=== PATIENT | female | born 1980 | race African-American/Black ===

== ENCOUNTER 2017-08-02 11:04 | Inpatient (IN) | payer OTHER, MEDICARE, MEDICAID ==
[~2017-08-02] VITALS: Ht 170.2 cm; Wt 68.5 kg
[~2017-08-02 11:04] MED LIST: GABA-290 PO; REBIF IV
[2017-08-02] MEDS ORDERED: P20 PO (11:32)
[2017-08-02] MEDS ORDERED: METHYLPREDNISOLONE SOD SUCC 500 MG in DEXT 5% WATER 100 ML IV ONE ×4 (12:45)
[2017-08-02 13:01] LABS: BASOPHILS % 0.6 % (0.0-2.0); HEMATOCRIT. 30.1 % (36.0-48.0); HEMOGLOBIN. 9.6 g/dL (12.0-16.0); LYMPHOCYTES % 13.7 % (20.0-50.0); MEAN CORPUSCULAR HEMOGLOBIN 24.1 pg (28.0-32.0); MEAN CORPUSCULAR VOLUME 75.6 fL (81.0-99.0); MEAN PLATELET VOLUME 8.4 fl (7.4-10.4); MONOCYTES % 3.6 % (2.0-8.0); NEUTROPHILS % 82.1 % (40.0-76.0); PLATELET 271 x1000/uL (130-400); RED BLOOD CELL COUNT 3.98 mill/uL (4.2-5.4); RED CELL DISTRIBUTION WIDTH 19.6 % (11.6-14.6)
[2017-08-02 13:08] LABS: CHLORIDE 106 mEq/L (98-107)
[2017-08-02 13:13] LABS: CARBON DIOXIDE 25 mEq/L (21-32)
[2017-08-02] MEDS: METHYLPREDNISOLONE SOD SUCC 500 MG in DEXT 5% WATER 100 ML IV NR ×2 (13:15→15:47)
[2017-08-02] MEDS: METHYLPREDNISOLONE SOD SUCC 500 MG in DEXT 5% WATER 100 ML IV ONE ×2 (13:27→13:29)
[2017-08-02] MEDS ORDERED: PROPOFOL 200MG/20ML VIAL IV ONE (13:31)
[2017-08-02] MEDS ORDERED: FENTANYL CITRATE/PF 50MCG/ML 2ML VIAL ONE (13:32)
[2017-08-02] MEDS ORDERED: LIDOCAINE HCL 1% 20ML VIAL (Pyxis) INJ ONE (13:39)
[2017-08-02] MEDS ORDERED: DIPHENHYDRAMINE 50MG/ML VIAL IV PRN (19:15)
[2017-08-02] MEDS ORDERED: CLONIDINE 0.1MG TABLET PO PRN (19:15)
[2017-08-02] MEDS ORDERED: ONDANSETRON HCL 4MG/2ML VIAL IV PRN (19:15)
[2017-08-02] MEDS ORDERED: MAGNESIUM/ALUMINUM HYDROXIDE/SIMETHICONE 30ML UDC PO PRN (19:15)
[2017-08-02 19:53] VITALS: BP 140/85
[2017-08-02 20:00] VITALS: BP 140/85
[2017-08-02] MEDS: ACETAMINOPHEN 325MG TABLET PO PRN (20:40)
[2017-08-02] MEDS: LORAZEPAM 0.5MG TABLET PO PRN (23:18)
[2017-08-03] VITALS: BP 99/68
[2017-08-03] MEDS: SODIUM CHLORIDE 0.9% INJ 3ML FLUSH IVF SCH ×4 (03:43→21:09)
[2017-08-03] MEDS: ACETAMINOPHEN 325MG TABLET PO PRN ×2 (03:43→20:10)
[2017-08-03 04:00] VITALS: BP 134/73
[2017-08-03 08:00] VITALS: BP 129/97
[2017-08-03] MEDS: LORAZEPAM 0.5MG TABLET PO PRN ×2 (10:24→22:50)
[2017-08-03 11:51] VITALS: BP 141/78
[2017-08-03 16:00] VITALS: BP 126/88
[2017-08-03 20:00] VITALS: BP 135/91
[2017-08-04] VITALS: BP 112/76
[2017-08-04 04:00] VITALS: BP 121/76
[2017-08-04] MEDS: SODIUM CHLORIDE 0.9% INJ 3ML FLUSH IVF SCH ×3 (05:09→21:45)
[2017-08-04 08:00] VITALS: BP 122/87
[2017-08-04] MEDS: FAMOTIDINE 20MG TABLET PO SCH ×2 (11:08→21:43)
[2017-08-04 12:00] VITALS: BP 131/92
[2017-08-04] MEDS: METHYLPREDNISOLONE SOD 1,000 MG in DEXT 5% WATER 100 ML IV SCH (12:01)
[2017-08-04 16:00] VITALS: BP 132/89
[2017-08-04 20:00] VITALS: BP 116/83
[2017-08-04] MEDS: LORAZEPAM 0.5MG TABLET PO PRN (21:43)
[2017-08-04] MEDS: LORAZEPAM 0.5MG TABLET PO SCH (22:45)
[2017-08-05] VITALS: BP 120/78
[2017-08-05 04:00] VITALS: BP 122/80
[2017-08-05] MEDS: SODIUM CHLORIDE 0.9% INJ 3ML FLUSH IVF SCH ×2 (06:19→21:06)
[2017-08-05 08:00] VITALS: BP 124/77
[2017-08-05] MEDS: FAMOTIDINE 20MG TABLET PO SCH ×2 (08:47→20:27)
[2017-08-05 12:00] VITALS: BP 143/93
[2017-08-05] MEDS: METHYLPREDNISOLONE SOD 1,000 MG in DEXT 5% WATER 100 ML IV SCH (12:24)
[2017-08-05] MEDS: ACETAMINOPHEN 325MG TABLET PO PRN (15:31)
[2017-08-05 16:00] VITALS: BP 134/93
[2017-08-05] MEDS: LORAZEPAM 0.5MG TABLET PO SCH (20:31)
[2017-08-05] MEDS: ASPIRIN/ACETAMINOPHEN/CAFFEINE 250/250/65MG TABLET PO PRN (20:32)
[2017-08-05] MEDS ORDERED: IOHEXOL-300 100 ML BOTTLE ONE (22:06)
[2017-08-06] MEDS: SODIUM CHLORIDE 0.9% INJ 3ML FLUSH IVF SCH ×3 (05:02→22:02)
[2017-08-06] MEDS: LORAZEPAM 0.5MG TABLET PO PRN (05:15)
[2017-08-06] MEDS: ASPIRIN/ACETAMINOPHEN/CAFFEINE 250/250/65MG TABLET PO PRN (05:15)
[2017-08-06 08:00] VITALS: BP 140/92
[2017-08-06] MEDS: FAMOTIDINE 20MG TABLET PO SCH ×2 (08:43→21:00)
[2017-08-06 12:00] VITALS: BP 119/80
[2017-08-06] MEDS: METHYLPREDNISOLONE SOD 1,000 MG in DEXT 5% WATER 100 ML IV SCH (13:25)
[2017-08-06 16:00] VITALS: BP 152/91
[2017-08-06 20:00] VITALS: BP 137/86
[2017-08-06] MEDS: LORAZEPAM 0.5MG TABLET PO SCH (22:02)
[2017-08-07] VITALS: BP 126/94
[2017-08-07 04:00] VITALS: BP 144/85
[2017-08-07] MEDS: SODIUM CHLORIDE 0.9% INJ 3ML FLUSH IVF SCH (06:09)
[2017-08-07 08:00] VITALS: BP 124/96
[2017-08-07] MEDS: FAMOTIDINE 20MG TABLET PO SCH (08:56)
[2017-08-07 09:33] VITALS: BP 124/96
== END 2017-08-07 10:05 | disposition home or self-care (01) | DRG 60 ==
LOC: ER 11:04 → 6EST 14:28 → ENRESERV 15:26 → CANBEDREQ 16:13
PROVIDERS: ADMIT Internal Medicine; ATTEND Psychiatry & Neurology Neurology
DX: G35 Multiple sclerosis (principal); B37.3 Candidiasis of vulva and vagina; D64.9 Anemia, unspecified; E11.9 Type 2 diabetes mellitus without complications; F12.90 Cannabis use, unspecified, uncomplicated; F17.200 Nicotine dependence, unspecified, uncomplicated; F32.9 Major depressive disorder, single episode, unspecified; F41.9 Anxiety disorder, unspecified; Z82.0 Family history of epilepsy and other diseases of the nervous system; Z83.3 Family history of diabetes mellitus
CPT/HCPCS: 36415; 80048; 85025; 93970; 97110; 97112; 97116; 97162; 97165; 99285; 99406; C1893; J1200; J2704; J2930; J3010; J3490; J7030; J7060; Q9967

== ENCOUNTER 2020-01-05 10:06 | Emergency (ER) | payer OTHER, MEDICARE, MEDICAID ==
[~2020-01-05] VITALS: Ht 170.2 cm; Wt 65.0 kg
[~2020-01-05 10:06] MED LIST changes: +P20 PO
[2020-01-05 12:22] LABS: BASOPHILS % 0.1 % (0.0-2.0); HEMATOCRIT. 39.5 % (36.0-48.0); HEMOGLOBIN. 13.2 g/dL (12.0-16.0); LYMPHOCYTES % 17.1 % (20.0-50.0); MEAN CORPUSCULAR HEMOGLOBIN 29.2 pg (28.0-32.0); MEAN CORPUSCULAR VOLUME 87.5 fL (81.0-99.0); MEAN PLATELET VOLUME 10.1 fl (7.4-10.4); MONOCYTES % 6.2 % (2.0-8.0); NEUTROPHILS % 76.6 % (40.0-76.0); PLATELET 186 x1000/uL (130-400); RED BLOOD CELL COUNT 4.51 mill/uL (4.2-5.4); RED CELL DISTRIBUTION WIDTH 13.9 % (11.6-14.6)
[2020-01-05 12:28] LABS: INR 1.1; PROTHROMBIN TIME 11.4 sec (9.6-11.0)
[2020-01-05 12:29] LABS: CHLORIDE 110 mEq/L (98-107)
[2020-01-05 12:48] LABS: CLARITY URINE CLEAR (CLEAR); COLOR URINE DARK YELLOW (YELLOW); KETONES URINE 2+ (NEGATIVE); LEUKOCYTE ESTERASE URINE TRACE (NEGATIVE); NITRITE URINE NEGATIVE (NEGATIVE); OCCULT BLOOD URINE 2+ (NEGATIVE); PROTEIN URINE TRACE (NEGATIVE); SPECIFIC GRAVITY URINE 1.034 (1.005-1.030)
[2020-01-05] MEDS ORDERED: LORAZEPAM 1MG TABLET PO ONE (14:30)
[2020-01-05 17:00] VITALS: BP 118/73
== END 2020-01-05 18:55 | disposition left against medical advice (07) ==
LOC: ER 10:06 → CANBEDREQ 13:46 → ER 18:55
DX: G35 Multiple sclerosis (principal); R53.1 Weakness; R47.81 Slurred speech; F12.10 Cannabis abuse, uncomplicated; Z99.3 Dependence on wheelchair; Z79.899 Other long term (current) drug therapy
CPT/HCPCS: 36415; 80053; 81003; 85025; 99285

== ENCOUNTER 2020-01-05 20:08 | Emergency (ER) | payer OTHER, MEDICARE, MEDICAID ==
[~2020-01-05] VITALS: Ht 170.2 cm; Wt 55.0 kg
[2020-01-05] MEDS ORDERED: SODIUM CHLORIDE 0.9% 1,000 ML IV ONE (21:01)
[2020-01-05] MEDS ORDERED: LORAZEPAM 1MG TABLET PO ONE (21:30)
[2020-01-05 21:33] LABS: BASOPHILS % 0.5 % (0.0-2.0); HEMATOCRIT. 40.8 % (36.0-48.0); HEMOGLOBIN. 13.7 g/dL (12.0-16.0); LYMPHOCYTES % 21.9 % (20.0-50.0); MEAN CORPUSCULAR HEMOGLOBIN 29.3 pg (28.0-32.0); MEAN CORPUSCULAR VOLUME 87.1 fL (81.0-99.0); MEAN PLATELET VOLUME 10.9 fl (7.4-10.4); MONOCYTES % 7.9 % (2.0-8.0); NEUTROPHILS % 69.7 % (40.0-76.0); PLATELET 198 x1000/uL (130-400); RED BLOOD CELL COUNT 4.69 mill/uL (4.2-5.4); RED CELL DISTRIBUTION WIDTH 14.1 % (11.6-14.6)
[2020-01-05 21:37] LABS: PROTHROMBIN TIME 11.3 sec (9.6-11.0)
[2020-01-05 21:39] LABS: CHLORIDE 111 mEq/L (98-107)
[2020-01-05 21:43] LABS: ETHANOL BLOOD < 10 mg/dL
[2020-01-05 21:46] LABS: HCG SCREEN NEGATIVE
[2020-01-05 21:47] LABS: CREATINE KINASE 675 IU/L (26-192)
[2020-01-06] MEDS ORDERED: LORAZEPAM 2MG/ML CPJ IV ONE (02:45)
[2020-01-06 03:03] VITALS: BP 121/79
[2020-01-06 03:10] LABS: *AMPHETAMINES SCREEN URINE NEGATIVE (NEGATIVE)
[2020-01-06 03:11] LABS: *BARBITURATES SCREEN URINE NEGATIVE (NEGATIVE); *BENZODIAZEPINES SCREEN URINE NEGATIVE (NEGATIVE); *COCAINE SCREEN URINE NEGATIVE (NEGATIVE); METHADONE URINE SCREEN NEGATIVE (NEGATIVE); OPIATES URINE SCREEN NEGATIVE (NEGATIVE); PHENCYCLIDINE URINE SCREEN NEGATIVE (NEGATIVE)
[2020-01-06 03:23] LABS: CANNABINOID URINE SCREEN PRESUMTIVE POSITIVE (NEGATIVE)
[2020-01-06 03:48] LABS: CLARITY URINE CLOUDY (CLEAR); COLOR URINE DARK YELLOW (YELLOW); KETONES URINE 3+ (NEGATIVE); LEUKOCYTE ESTERASE URINE 1+ (NEGATIVE); NITRITE URINE NEGATIVE (NEGATIVE); OCCULT BLOOD URINE 2+ (NEGATIVE); PROTEIN URINE TRACE (NEGATIVE); SPECIFIC GRAVITY URINE 1.036 (1.005-1.030)
== END 2020-01-06 03:47 | disposition short-term general hospital (02) ==
LOC: ER 20:08 → CANBEDREQ 01-06 05:54
DX: R53.1 Weakness (principal); G35 Multiple sclerosis; E86.0 Dehydration
CPT/HCPCS: 36415; 71045; 80053; 80305; 80307; 80320; 80329; 81003; 81025; 82140; 82550; 83690; 83880; 84443; 84484; 84703; 85025; 85610; 93005; 96361; 96374; 99285; J2060; J7030; G0480